=== PATIENT | female | born 1995 | race Caucasian/White ===

== ENCOUNTER → 2018-04-10 | Outpatient (CLI) | payer BC ==
[~2018-04-10] MED LIST: ACYC400 PO; HYDACE5 PO; ISODICACE PO; RXHYD5325 PO
== END | disposition home or self-care (01) ==
LOC: LAB SHORT 11:44 → LAB 11:44
PROVIDERS: Nurse Practitioner Obstetrics & Gynecology
DX: Z01.419 Encounter for gynecological examination (general) (routine) without abnormal findings (principal); Z11.3 Encounter for screening for infections with a predominantly sexual mode of transmission
CPT/HCPCS: 87624; G0123

== ENCOUNTER → 2023-06-22 | Outpatient (CLI) | payer OTHER | LOC: LAB SHORT 15:30 → LAB 15:30 → LAB SHORT 06-23 15:30 | DX: N39.0 Urinary tract infection, site not specified (principal) | CPT/HCPCS: 87086 ==

== ENCOUNTER 2023-09-02 15:03 | Observation (INO) | payer OTHER ==
[~2023-09-02] VITALS: Ht 67.6 cm; Wt 87.1 kg
[2023-09-02 16:12] LABS: BASOPHILS ABSOLUTE AUTO 0.04 K/mm3 (0.00-0.23); BASOPHILS PERCENT AUTO 0 % (0-2); EOSINOPHILS ABSOLUTE AUTO 0.08 K/mm3 (0.00-0.68); EOSINOPHILS PERCENT AUTO 1 % (0-6); Hematocrit 44.3 % (33.0-51.0); IMMATURE GRAN ABSOLUTE AUTO 0.04 K/mm3 (0.00-0.10); IMMATURE GRAN PERCENT AUTO 0 % (0-1); LYMPHOCYTES PERCENT AUTO 12 % (21-46); MONOCYTES ABSOLUTE AUTO 0.81 K/mm3 (0.16-1.47); MONOCYTES PERCENT AUTO 6 % (4-13); Mean Corpuscular HGB 29.4 pg (26.0-34.0); Mean Corpuscular HGB Conc 33.9 g/dL (31.5-36.5); Mean Corpuscular Volume 87 fL (80-100); Mean Platelet Volume 9.3 fL (9.1-12.4); NEUTROPHILS ABSOLUTE AUTO 11.19 K/mm3 (1.96-9.15); NEUTROPHILS PERCENT AUTO 81 % (41-73); Platelet Count 408 K/mm3 (150-400); RDW Standard Deviation 38.5 fL (35.1-46.3); White Blood Cell Count 13.86 K/mm3 (4.00-11.30)
[2023-09-02 16:30] LABS: Albumin, Blood 4.5 g/dL (3.4-5.0); Albumin/Globulin Ratio 1.1 (0.8-1.8); Bilirubin, Total 0.6 mg/dL (0.1-1.0); Calcium, Blood 9.9 mg/dL (8.5-10.1); Creatinine, Blood 0.75 mg/dL (0.40-1.00); Globulin, Blood 4.2 g/dL (2.2-4.0); Potassium, Blood 3.1 mmol/L (3.5-5.5); Total Protein, Blood 8.7 g/dL (6.4-8.2)
[2023-09-02 19:21] LABS: Source, Urine Voided
[2023-09-02] MEDS ORDERED: SERT25 PO (19:23)
[2023-09-02] MEDS ORDERED: AMLODIPINE BESYL5 MG PO (19:23)
[2023-09-02] MEDS ORDERED: ZYRTEC10 M1 PO (19:24)
[2023-09-02] MEDS ORDERED: PRENATAL TABLE1 EAC9 PO (19:24)
[2023-09-02] MEDS ORDERED: IRON18 MG PO (19:25)
[2023-09-02] MEDS ORDERED: PYRI100 PO (19:25)
[2023-09-02] MEDS ORDERED: VITAMIN D31000 UNI1 PO (19:25)
[2023-09-02] MEDS ORDERED: VITAMIN B-1250 MCG PO (19:25)
[2023-09-02 19:26] LABS: Appearance, Urine Cloudy (Clear); Bilirubin, Urine Neg (Neg); Blood, Urine 5+ (Neg); Color, Urine Yellow (P-Yellow); Glucose Qualitative, Urine Neg (Neg); Ketones, Urine 2+ (Neg); Leukocyte Esterase, Urine 1+ (Neg); Nitrite, Urine Neg (Neg); Protein, Urine 1+ (Neg); Specific Gravity, Urine 1.025 (1.003-1.022); Urobilinogen, Urine NORM (Normal)
[2023-09-02 19:41] LABS: Bacteria Many /hpf; Calcium Oxalate Crystals Few /hpf; Squamous Epithelial Cells Mod /hpf (Few)
[2023-09-02] MEDS ORDERED: ONDA4ODT SL (22:19)
[2023-09-02] MEDS ORDERED: Percocet 5-3251 EACH PO (22:19)
[2023-09-02] MEDS ORDERED: CEFP200 PO (22:24)
[2023-09-03] VITALS (12 sets, daily range): BP systolic 122–141; BP diastolic 73–102
--- NOTE | 2023-09-03 00:45 | NUR ---
ARRIVAL TO PCU patient arrived to pcu via wheelchair and transfered independently. patient is alert and oriented x4. perrla. patient reports no shortness of breath or chest pain/pressure. patient reports pain in abd at a 5, and did not want pain medications at this time. see admin shift assessment for further detials. admission complete. plan of care is up to date. plan is for surgery tomorrow. patient is npo and will remain npo. vital signs stable. surgical status no tele. call light within reach and bed in lowest position
--- NOTE | 2023-09-03 06:13 | NUR ---
shift summary vital signs remained stable. patient npo since midnight. surgical status. no acute changes this shift. plan of care remains up to date.
--- NOTE | 2023-09-03 10:49 | NUR ---
UPDATE PT TAKEN TO DAY SURGERY. WILL AWAIT RETURN.
--- NOTE | 2023-09-03 11:04 | NUR ---
Assumed care at 1050. Urine test negative per Jennifer Whaley RN. Back to OR at 1104.
--- NOTE | 2023-09-03 12:18 | NUR ---
UNABLE TO START IV
--- NOTE | 2023-09-03 13:06 | NUR ---
UPDATE PT RETURNED FROM PACU. PT AWAKE AND ALERT. VS STABLE. PT COMPLAINS OF 5/10 PAIN TO ABD. 3 INCICIONS WITH STERI STRIPS IN PLACE AND DRIED BLOOD. PT MEDICATED PER EMAR FOR PAIN. WILL CONTINUE TO MONITOR CLOSELY
[2023-09-03] MEDS ORDERED: OXYC10TA19 PO (15:27)
--- NOTE | 2023-09-03 15:40 | NUR ---
UPDATE DISCHARGE INSTRUCTIONS PROVIDED TO PT. PT EDUCATED ON FOLLOW-UP AND NEW PRESCRIPTION. HARD SCRIPT PROVIDED TO PT. PT MEDICATED FOR PAIN PRIOR TO DISCHARGE. ALL QUESTIONS ANSWERED. PT TO BE TAKEN OUT BY WC
== END 2023-09-03 17:45 | disposition home or self-care (01) ==
LOC: ER 15:03 → SURS 15:04 → PCU 15:04
PROVIDERS: Emergency Medicine; ADMIT Surgery
PROC: 0DTJ0ZZ Resection of Appendix, Open Approach (ICD-10-PCS; principal; 2023-09-03 09:45)
DX: K35.80 Unspecified acute appendicitis (principal)
CPT/HCPCS: 74177; 80053; 81001; 81025; 83690; 85025; 87086; 88304; 96361; 96374-59; 96375; 96376; 99285-25; A9270; G0378; J0295; J1170; J1885; J2250; J2405; J2704; J3010; J3480; J7030; Q9967

== ENCOUNTER → 2023-12-13 | Outpatient (CLI) | payer OTHER ==
[~2023-12-13] MED LIST changes: +AMLODIPINE BESYL5 MG PO; +CEFP200 PO; +IRON18 MG PO; +ONDA4ODT SL; +OXYC10TA19 PO; +PRENATAL TABLE1 EAC9 PO; +PYRI100 PO; +Percocet 5-3251 EACH PO; +SERT25 PO; +VITAMIN B-1250 MCG PO; +VITAMIN D31000 UNI1 PO; +ZYRTEC10 M1 PO
== END | disposition home or self-care (01) ==
LOC: LAB SHORT 10:25 → LAB 10:25
DX: R30.0 Dysuria (principal)
CPT/HCPCS: 87086